=== PATIENT | male | born 1950 | race Caucasian/White ===

== ENCOUNTER 2016-11-25 09:01 | Emergency (ER) | payer OTHER ==
[~2016-11-25] VITALS: Ht 180.3 cm; Wt 107.0 kg
[~2016-11-25 09:01] MED LIST: CHOL2000 PO; CLOP1TAB5 PO; COEN400C3 PO; METO25TA3 PO; SIMV80TA2 PO; [UNRECOGNIZED DRUG - OTHER] PO
[2016-11-25 09:10] VITALS: TEMP 36.5; Ht 180.3 cm; Wt 107.0 kg
[2016-11-25 09:16] VITALS: O2SAT 97
[2016-11-25 09:45] LABS: BASO % 0.2 %; BASO ABS # 0.01 K/uL (0-0.2); COMPLETE YES; EOS % 2.1 %; HEMATOCRIT 49.1 % (42-52); IG% 0.2 %; LYMPH % 30.5 %; LYMPH ABS # 1.93 K/uL (1.2-3.4); MEAN CELL VOLUME 88.2 fL (80-100); MEAN CORPUSCULAR HEMOGLOBIN 29.3 pg (25-34); MEAN CORPUSCULAR HGB CONC 33.2 g/dl (32-36); MEAN PLATELET VOLUME 9.8 fL (7.4-10.4); MONO % 7.8 %; NEUT % 59.2 %; PLATELET COUNT 195 K/uL (130-400); RED BLOOD COUNT 5.57 M/uL (4.7-6.1); WHITE BLOOD COUNT 6.32 K/uL (4.8-10.8)
--- NOTE | 2016-11-25 09:45 | EMERGENCY ROOM VISIT NOTE ---
History Report prepared by Didi: Poppy Barlow Under the Supervision of: Dr. Mann Silva M.D. First contact with patient: 09:28 Chief Complaint: CHEST PAIN Stated Complaint: SHOULDER,CHEST PAIN Nursing Triage Summary: see shoulder assessment pt reports 4 hours trips approx 1 week ago to mo has hx of mitral valve prolapse and takes toprol xl pain awoke him at 0400 this am. pt has bruising to left chest from massage 1 week ago History of Present Illness The patient is a 66 year old male who presents to the Emergency Room with complaints of waxing and waning left sided chest pain that began two days ago. He currently rates his discomfort as a 2/10 in severity. The patient reports that two weeks ago he noticed a pain that started in his back, up over his left shoulder into his left chest. He states that two weeks ago his pain subsided with aspirin and Aleve, but additionally notes that he consulted a chiropractor. The patient reports that his pain returned two days ago. He reports increased pain with movement or deep breathing. He states that he was woken this morning with worsened pain around 0900. The patient denies any injury. He denies any history of blood clots. The patient denies any recent stress test. He reports that a recent morning he became diaphoretic suddenly without any exertion. The patient denies any shortness of breath, lightheadedness, dizziness, nausea, vomiting, abdominal pain, melena, hematochezia, or swelling or pain in his legs. The patient reports he is on Plavix for a TIA he had in 1999. The patient states that he consulted his PCP who recommended he come to the emergency department for further work up. Source of History: patient Onset: two days ago Position: chest (left) Symptom Intensity: 2/10 Timing: waxes/wanes Modifying Factors (Worsening): breathing (deep), movement Associated Symptoms: + diaphoresis, No SOB, No nausea, No vomiting, No abdominal pain, No melena, No hematochezia Review of Systems See HPI for pertinent positives & negatives. A total of 10 systems reviewed and were otherwise negative. Past Medical & Surgical Medical Problems: (1) Heart disease (2) Hypertension (3) Mitral valve prolapse (4) TIA (transient ischemic attack) Surgical Problems: (1) H/O hernia repair (2) S/P cholecystectomy (3) S/P hernia repair Old medical records were reviewed. Nurse's notes were reviewed and I agree with. Denies history of coronary artery disease. Her mitral valve prolapse and TIA. He is on plavix Family History Hypertension Kidney disease Kidney stones Social History Smoking Status: Never Smoker Smokeless Tobacco Use: No Alcohol Use: occasionally Marital Status: Housing Status: lives with significant other Occupation Status: retired Current/Historical Medications Scheduled Cholecalciferol (Vitamin D3), 1 CAP PO DAILY Clopidogrel Bisulfate (Plavix), 75 MG PO DAILY Coenzyme Q10 (Ubidecarenone) (Co Q-10 Maximum Strength), 400 MG PO DAILY Metoprolol Succ (Toprol Xl) (Toprol-Xl), 25 MG PO DAILY [place]-3 Fatty Acids (Fish Oil), 1,200 MG PO DAILY Simvastatin (Zocor), 20 MG PO HS Vardenafil Hcl (Levitra), 20 MG PO DIRECTED Allergies Coded Allergies: Penicillins (Verified Allergy, Unknown, 07/22/14) Physical Exam Vital Signs Date Time Temp Pulse Resp B/P (MAP) Pulse Ox O2 Delivery O2 Flow Rate FiO2 11/25/16 12:12 63 18 176/82 97 11/25/16 10:36 58 18 176/82 95 Room Air 11/25/16 09:16 97 Room Air 11/25/16 09:10 67 11/25/16 09:10 36.5 60 18 176/82 98 Room Air Physical Exam General: Well developed well nourished, non-ill appearing older male, in no acute distress, breathing comfortably on room air. Normal speech HEENT: Normal cephalic atraumatic. Pupils are equal round and reactive to light. Extraocular movements are intact. Oropharynx is pink with moist mucous membranes. No swelling of the mouth lips or tongue. Neck: Supple with a midline trachea. No meningeal signs or stiffness, no JVD or bruits. No Stridor. Chest: Clear to auscultation bilaterally. No wheezes or rhonchi. No increased work of breathing. Heart: regular rate and rhythm. Abdomen: Soft nontender, nondistended without rebound guarding or rigidity. Extremities: Chest pain is mildly reproducible with movement of arm, no redness , tenderness or warmth. No cyanosis clubbing or edema. No calf tenderness or assymetry Spine/Back. Non tender to palpation. No CVA tenderness Skin: Good turgor without rashes. Neurologic exam: Cranial nerves two through 12 are intact. Motor and sensation are intact and symmetrical throughout. Medical Decision & Procedures ER Provider Diagnostic Interpretation: X-ray results as stated below per interpretation by me and the radiologist: CHEST ONE VIEW PORTABLE CLINICAL HISTORY: CHEST PAIN dyspnea COMPARISON STUDY: 04/13/2013 FINDINGS: Mild stable cardiomegaly. Diaphragms smooth. Lungs are clear. IMPRESSION: Mild stable cardiomegaly. Otherwise negative study Electronically signed by: Rommel Hirsch M.D. 11/25/2016 10:10 AM Dictated Date/Time: 11/25/2016 10:09 AM Laboratory Results 11/25/16 09:15 Red Blood Count 5.57, Mean Corpuscular Volume 88.2, Mean Corpuscular Hemoglobin 29.3, Mean Corpuscular Hemoglobin Concent 33.2, Mean Platelet Volume 9.8, Neutrophils (%) (Auto) 59.2, Lymphocytes (%) (Auto) 30.5, Monocytes (%) (Auto) 7.8, Eosinophils (%) (Auto) 2.1, Basophils (%) (Auto) 0.2, Neutrophils # (Auto) 3.75, Lymphocytes # (Auto) 1.93, Monocytes # (Auto) 0.49, Eosinophils # (Auto) 0.13, Basophils # (Auto) 0.01 11/25/16 09:15 Test 11/25/16 09:15 11/25/16 09:44 White Blood Count 6.32 K/uL (4.8-10.8) Red Blood Count 5.57 M/uL (4.7-6.1) Hemoglobin 16.3 g/dL (14.0-18.0) Hematocrit 49.1 % (42-52) Mean Corpuscular Volume 88.2 fL (80-100) Mean Corpuscular Hemoglobin 29.3 pg (25-34) Mean Corpuscular Hemoglobin Concent 33.2 g/dl (32-36) Platelet Count 195 K/uL (130-400) Mean Platelet Volume 9.8 fL (7.4-10.4) Neutrophils (%) (Auto) 59.2 % Lymphocytes (%) (Auto) 30.5 % Monocytes (%) (Auto) 7.8 % Eosinophils (%) (Auto) 2.1 % Basophils (%) (Auto) 0.2 % Neutrophils # (Auto) 3.75 K/uL (1.4-6.5) Lymphocytes # (Auto) 1.93 K/uL (1.2-3.4) Monocytes # (Auto) 0.49 K/uL (0.11-0.59) Eosinophils # (Auto) 0.13 K/uL (0-0.5) Basophils # (Auto) 0.01 K/uL (0-0.2) RDW Standard Deviation 42.7 fL (36.4-46.3) RDW Coefficient of Variation 13.2 % (11.5-14.5) Immature Granulocyte % (Auto) 0.2 % Immature Granulocyte # (Auto) 0.01 K/uL (0.00-0.02) Anion Gap 5.0 mmol/L (3-11) Est Creatinine Clear Calc Drug Dose 101.3 ml/min Estimated GFR () 103.0 Estimated GFR (Non- 88.9 BUN/Creatinine Ratio 21.8 (10-20) Calcium Level 8.9 mg/dl (8.5-10.1) Total Bilirubin 0.9 mg/dl (0.2-1) Direct Bilirubin 0.2 mg/dl (0-0.2) Aspartate Amino Transf (AST/SGOT) 23 U/L (15-37) Alanine Aminotransferase (ALT/SGPT) 30 U/L (12-78) Alkaline Phosphatase 57 U/L (45-117) Total Creatine Kinase 145 U/L (39-308) Creatine Kinase MB 4.2 ng/ml (0.5-3.6) Creatine Kinase MB Ratio 2.9 (0-3.0) Total Protein 7.8 gm/dl (6.4-8.2) Albumin 4.0 gm/dl (3.4-5.0) Lipase 92 U/L (73-393) Bedside D-Dimer 125 ng/mlFEU (0-450) Bedside Troponin I < 0.030 ng/ml (0-0.045) HV-Njb-P-Type Natriuretic Peptide 92 pg/ml (0-900) Laboratory studies as stated above per my review. ECG Indication: chest pain Rate (beats per minute): 64 Rhythm: normal sinus Findings: no acute ischemic change, no ectopy Comparison ECG Date: 04/13/13 Change: EKG Change: When compared to EKG done on 04/13/13, PVCs are now absent. Repeat EKG: Normal Sinus Rhythm, 60 beats per minute, PVCs noted occasionally, no ischemia, no change when compared to EKG #1 with exception of occasional PVC. ED Course 09: Past medical records reviewed. The patient was evaluated in room A3, and a complete history and physical examination were performed. 1132: I reevaluated the patient and he is resting comfortably. I discussed the exam findings with him and I discussed the treatment plan. He verbalized complete understanding and agreement. He is ready to go home. Medical Decision Differentials include, but are not limited to; acute coronary syndrome, arrhythmia, PE, pneumothorax, musculoskeletal, infection, electrolyte or metabolic abnormality. This patient comes in after having chest pain off and on for 2 weeks. He is left shoulder and chest. It does hurt with movement at times and is somewhat pleuritic. He does have several cardiac risk factors. IV access was established EKG was obtained and multiple blood tests was obtained as well as chest x-ray. EKG does not suggest acute coronary syndrome or arrhythmia. He is on Plavix. He has a nonischemic appearing EKG. His second EKG and is unremarkable as well and no change compared to EKG #1. Cardiac biomarkers are not elevated troponin specifically is not elevated. He has nothing to suggest congestive heart failure, pneumonia, or pneumothorax. D-dimer is within normal limits and a low pretest probability makes PE highly unlikely. The patient looks good this has been going on for many hours since this morning and he has no bump in his troponin. I think is unlikely cardiac his symptoms are atypical it does hurt worse with certain movements and deep breaths. I talked to him about admitting him versus discharge him he would much rather go home at think this is reasonable with close follow-up as I think he is low risk at this point. I encouraged him to follow-up with his doctor Monday for recheck and return to ER over the weekend if: he has increasing pain, worsening of symptoms, fever or chills, any new problems or concerns. The patient was happy with the plan and discharged to home.. Blood pressure Screening: Patient was found to have an elevated blood pressure and was referred to their primary doctor for recheck and further treatment. Medication Reconciliation: I attest that I have personally reviewed the patient' s current medication list. Impression Primary Impression: Left sided chest pain Scribe Attestation The scribe's documentation has been prepared under my direction and personally reviewed by me in its entirety. I confirm that the note above accurately reflects all work, treatment, procedures, and medical decision making performed by me. Departure Information Dispostion Home / Self-Care Referrals Beny Ceballos M.D. (PCP) Forms HOME CARE DOCUMENTATION FORM, IMPORTANT VISIT INFORMATION Patient Instructions My [facility] Additional Instructions Rest. Drink plenty of fluids. Return if: Worsening of symptoms, further chest pain, shortness of breath, any new problems. Follow-up on your doctor on Monday for recheck and return to the ER over the weekend if symptoms worsen
[2016-11-25 09:54] LABS: BUN/CREATININE RATIO 21.8 (10-20); CALCIUM 8.9 mg/dl (8.5-10.1); CREATININE 0.88 mg/dl (0.60-1.40); POTASSIUM 4.3 mmol/L (3.5-5.1)
[2016-11-25] MEDS ORDERED: SIMV20TA2 PO (09:58)
[2016-11-25] MEDS ORDERED: OMEG120013 PO (09:58)
[2016-11-25] MEDS ORDERED: VARD20TA PO (09:58)
[2016-11-25 09:59] LABS: CKMB/CK RATIO 2.9 (0-3.0)
[2016-11-25 10:08] LABS: POINT OF CARE PRO-BNP 92 pg/ml (0-900); POINT OF CARE TROPONIN I < 0.030 ng/ml (0-0.045)
--- NOTE | 2016-11-25 10:11 | DIAGNOSTIC IMAGING REPORT ---
CHEST ONE VIEW PORTABLE CLINICAL HISTORY: CHEST PAIN dyspnea COMPARISON STUDY: 04/13/2013 FINDINGS: Mild stable cardiomegaly. Diaphragms smooth. Lungs are clear. IMPRESSION: Mild stable cardiomegaly. Otherwise negative study Electronically signed by: Rommel Hirsch M.D. 11/25/2016 10:10 AM Dictated Date/Time: 11/25/2016 10:09 AM
[2016-11-25 12:12] VITALS: BP 176/82; PULSE 63; O2SAT 97
== END 2016-11-25 12:13 | disposition home or self-care (01) ==
LOC: C.EDA 09:17
DX: R07.9 Chest pain, unspecified (principal); I10 Essential (primary) hypertension; I34.1 Nonrheumatic mitral (valve) prolapse; Z86.73 Personal history of transient ischemic attack (TIA), and cerebral infarction without residual deficits; Z79.01 Long term (current) use of anticoagulants; Z82.49 Family history of ischemic heart disease and other diseases of the circulatory system; Z84.1 Family history of disorders of kidney and ureter

== ENCOUNTER → 2017-03-23 | Outpatient (CLI) | payer OTHER ==
[~2017-03-23] MED LIST changes: +OMEG120013 PO; +SIMV20TA2 PO; -SIMV80TA2 PO; +VARD20TA PO; -[UNRECOGNIZED DRUG - OTHER] PO
[2017-03-23 11:21] LABS: ALT/SGPT 25 U/L (12-78); AST/SGOT 19 U/L (15-37); BLOOD UREA NITROGEN 21 mg/dl (7-18); BUN/CREATININE RATIO 25.8 (10-20); CALCIUM 8.8 mg/dl (8.5-10.1); CARBON DIOXIDE 26 mmol/L (21-32); CHLORIDE 106 mmol/L (98-107); CREATININE 0.81 mg/dl (0.60-1.40); GLUCOSE 87 mg/dl (70-99); POTASSIUM 4.1 mmol/L (3.5-5.1); SODIUM 140 mmol/L (136-145)
[2017-03-23 11:26] LABS: ALB/GLOB RATIO 1.1 (0.9-2); ALKALINE PHOSPHATASE 60 U/L (45-117); CHOLESTEROL 149 mg/dl (0-200); CHOLESTEROL/HDL RATIO 2.8; HDL CHOLESTEROL 53 mg/dl; LDL CHOLESTEROL CALCULATED 69 mg/dl; TRIGLYCERIDES 133 mg/dl (0-150); VERY LOW DENSITY LIPOPROT CALC 27 mg/dl
== END | disposition home or self-care (01) ==
LOC: C.LABBC 08:59
PROVIDERS: ATTEND Internal Medicine
DX: I49.3 Ventricular premature depolarization (principal); I10 Essential (primary) hypertension; E78.5 Hyperlipidemia, unspecified; R73.09 Other abnormal glucose; Z12.5 Encounter for screening for malignant neoplasm of prostate

== ENCOUNTER → 2017-05-19 | Outpatient (CLI) | payer OTHER | END | disposition home or self-care (01) | LOC: C.LABBC 08:01 | PROVIDERS: ATTEND Urology | DX: Z12.5 Encounter for screening for malignant neoplasm of prostate (principal); R97.20 Elevated prostate specific antigen [PSA] ==

== ENCOUNTER → 2017-10-05 | Outpatient (CLI) | payer OTHER ==
--- NOTE | 2017-10-05 09:26 | DIAGNOSTIC IMAGING REPORT ---
L HIP UNILATERAL 2 VIEWS CLINICAL HISTORY: M16.10 Arthritis, [id number] pain COMPARISON: None. DISCUSSION: Minimal degenerative narrowing left hip joint space. Several surgical clips and coils overlying the lateral left soft tissue pelvis. No evidence for acetabular protrusion. There is no evidence for soft tissue swelling. IMPRESSION: Minimal degenerative narrowing left hip joint space. No acute process. The above report was generated using voice recognition software. It may contain grammatical, syntax or spelling errors. Electronically signed by: Rommel Hirsch M.D. 10/05/2017 9:25 AM Dictated Date/Time: 10/05/2017 9:24 AM
--- NOTE | 2017-10-05 09:27 | DIAGNOSTIC IMAGING REPORT ---
R HIP UNILATERAL 2 VIEWS CLINICAL HISTORY: ARTHRITIS,HIP pain COMPARISON: None. DISCUSSION: Considerable degenerative change right hip joint space. Virtual complete loss of joint space superiorly. Reactive sclerosis of the superior acetabulum. No evidence for acetabular protrusion. There is no evidence for soft tissue swelling. IMPRESSION: Severe degenerative change right hip. The above report was generated using voice recognition software. It may contain grammatical, syntax or spelling errors. Electronically signed by: Rommel Hirsch M.D. 10/05/2017 9:26 AM Dictated Date/Time: 10/05/2017 9:25 AM
== END | disposition home or self-care (01) ==
LOC: C.RADBC 08:57
PROVIDERS: ATTEND Internal Medicine
DX: M16.11 Unilateral primary osteoarthritis, right hip (principal)